=== PATIENT | female | born 1990 | race Caucasian/White ===

== ENCOUNTER 2016-06-22 10:37 | Emergency (ER) | payer BC, OTHER ==
[~2016-06-22] VITALS: Ht 149.9 cm; Wt 59.0 kg
[~2016-06-22 10:37] MED LIST: FERR1TAB25; PREN-95
[2016-06-22 13:17] LABS: BASOPHILS % 0.3 % (0.0-2.0); EOSINOPHILS % 0.4 % (0.0-5.0); HEMOGLOBIN. 11.5 g/dL (12.0-16.0); LYMPHOCYTES % 23.6 % (20.0-50.0); MEAN CORPUSCULAR HGB CONC 33.8 g/dL (31.0-37.0); MEAN PLATELET VOLUME 7.4 fl (7.4-10.4); MONOCYTES % 6.3 % (2.0-8.0); NEUTROPHILS % 69.4 % (40.0-76.0); PLATELET 223 x1000/uL (130-400); RED BLOOD CELL COUNT 3.95 mill/uL (4.2-5.4); RED CELL DISTRIBUTION WIDTH 14.8 % (11.6-14.6); WHITE BLOOD COUNT 7.2 x1000/uL (4.5-11.0)
[2016-06-22 13:25] LABS: PROTHROMBIN TIME 10.8 sec
[2016-06-22 13:32] LABS: ALANINE AMINOTRANSFERASE < 6 IU/L (13-61); ALBUMIN 3.7 g/dL (3.4-5.0); ANION GAP 13; CALCIUM 8.4 mg/dL (8.5-10.1); CARBON DIOXIDE 25 mEq/L (21-32); CHLORIDE 103 mEq/L (98-107); INDEX HEMOLYSI 1 (1-3); INDEX ICTERIC 1 (1-4); INDEX LIPEMIC 1 (1-3); UREA NITROGEN BLOOD 6 mg/dL (7-21); eGFR > 60 mL/min (>60)
[2016-06-22 13:47] LABS: B-HCG QUANTITATIVE 18598 mIU/mL (<3)
[2016-06-22 13:58] LABS: HCG SCREEN POSITIVE
[2016-06-22 14:39] LABS: CLARITY URINE CLOUDY (CLEAR); GLUCOSE URINE NEGATIVE (NEGATIVE); KETONES URINE TRACE (NEGATIVE); LEUKOCYTE ESTERASE URINE NEGATIVE (NEGATIVE); NITRITE URINE NEGATIVE (NEGATIVE); OCCULT BLOOD URINE 3+ (NEGATIVE); PH URINE 6.5 (4.5-8.0); PROTEIN URINE NEGATIVE (NEGATIVE); SPECIFIC GRAVITY URINE 1.005 (1.005-1.030); UROBILINOGEN URINE 0.2 E.U./dL (0.2-1.0)
[2016-06-22 14:52] LABS: SQUAMOUS EPITHELIAL CELL URINE 3+ /lpf (RARE/1+)
[2016-06-22 14:53] LABS: COLOR URINE BLOODY (YELLOW)
[2016-06-22 14:54] LABS: BACTERIA URINE 3+; RBC URINE 50-100 /hpf (0-2)
[2016-06-22 15:09] VITALS: BP 96/45
== END 2016-06-22 15:37 | disposition home or self-care (01) ==
LOC: ER 12:37
DX: O36.4XX0 Maternal care for intrauterine death, not applicable or unspecified (principal); Z3A.12 12 weeks gestation of pregnancy; Z79.899 Other long term (current) drug therapy; Z98.890 Other specified postprocedural states
CPT/HCPCS: 36415; 76801; 80053; 81001; 84702; 84703; 85025; 85610; 86850; 86900; 86901; 99285; Z7610

== ENCOUNTER 2016-06-25 19:32 | Emergency (ER) | payer BC | END 2016-06-25 20:33 | disposition left against medical advice (07) | LOC: ER 20:20 | DX: N93.9 Abnormal uterine and vaginal bleeding, unspecified (principal); Z53.21 Procedure and treatment not carried out due to patient leaving prior to being seen by health care provider ==

== ENCOUNTER 2016-06-26 04:49 | Emergency (ER) | payer BC ==
[~2016-06-26] VITALS: Ht 149.9 cm; Wt 52.0 kg
[2016-06-26 09:21] LABS: BASOPHILS % 0.4 % (0.0-2.0); EOSINOPHILS % 0.8 % (0.0-5.0); HEMATOCRIT. 32.2 % (36.0-48.0); LYMPHOCYTES % 30.8 % (20.0-50.0); MEAN CORPUSCULAR HEMOGLOBIN 29.5 pg (28.0-32.0); MEAN CORPUSCULAR HGB CONC 34.2 g/dL (31.0-37.0); MEAN CORPUSCULAR VOLUME 86.4 fL (81.0-99.0); MEAN PLATELET VOLUME 7.8 fl (7.4-10.4); MONOCYTES % 8.6 % (2.0-8.0); NEUTROPHILS % 59.4 % (40.0-76.0); PLATELET 218 x1000/uL (130-400); RED BLOOD CELL COUNT 3.72 mill/uL (4.2-5.4); RED CELL DISTRIBUTION WIDTH 14.8 % (11.6-14.6); WHITE BLOOD COUNT 6.6 x1000/uL (4.5-11.0)
[2016-06-26] MEDS ORDERED: MISOPROSTOL 200MCG TABLET PO ONE (11:30)
[2016-06-26 12:04] VITALS: BP 98/60
== END 2016-06-26 12:05 | disposition home or self-care (01) ==
LOC: ER 04:50
DX: O02.1 Missed abortion (principal)
CPT/HCPCS: 36415; 76801; 84702; 85025; 99285

== ENCOUNTER 2016-06-26 17:32 | Emergency (ER) | payer BC ==
[~2016-06-26] VITALS: Ht 160 cm; Wt 58.0 kg
[2016-06-26 20:20] LABS: CHLORIDE 105 mEq/L (98-107); INDEX HEMOLYSI 1 (1-3); INDEX ICTERIC 1 (1-4); INDEX LIPEMIC 1 (1-3)
[2016-06-26 20:23] LABS: BASOPHILS % 0.3 % (0.0-2.0); HEMATOCRIT. 34.5 % (36.0-48.0); HEMOGLOBIN. 11.6 g/dL (12.0-16.0); MEAN CORPUSCULAR HGB CONC 33.7 g/dL (31.0-37.0); MEAN CORPUSCULAR VOLUME 86.2 fL (81.0-99.0); MEAN PLATELET VOLUME 8.4 fl (7.4-10.4); MONOCYTES % 4.4 % (2.0-8.0); NEUTROPHILS % 87.3 % (40.0-76.0); PLATELET 235 x1000/uL (130-400); RED CELL DISTRIBUTION WIDTH 14.5 % (11.6-14.6); WHITE BLOOD COUNT 16.5 x1000/uL (4.5-11.0)
[2016-06-26 20:25] LABS: ANION GAP 14; CALCIUM 8.8 mg/dL (8.5-10.1); CARBON DIOXIDE 22 mEq/L (21-32); UREA NITROGEN BLOOD 7 mg/dL (7-21)
[2016-06-26 20:29] LABS: eGFR > 60 mL/min (>60)
[2016-06-26 20:30] VITALS: BP 106/60
[2016-06-26 20:42] LABS: B-HCG QUANTITATIVE 8417 mIU/mL (<3)
== END 2016-06-26 20:40 | disposition home or self-care (01) ==
LOC: ER 17:34
DX: O02.1 Missed abortion (principal)
CPT/HCPCS: 36415; 76801; 80048; 84702; 85025; 86850; 86900; 88305; 99285

== ENCOUNTER 2019-07-13 20:03 | Emergency (ER) | payer SELFPAY ==
[~2019-07-13] VITALS: Ht 149.9 cm; Wt 55.0 kg
[2019-07-13 20:26] VITALS: BP 120/53
== END 2019-07-13 23:00 | disposition home or self-care (01) ==
LOC: ER 20:03
DX: J06.9 Acute upper respiratory infection, unspecified (principal); R06.09 Other forms of dyspnea; Z98.890 Other specified postprocedural states
CPT/HCPCS: 71045; 81025; 99282

== ENCOUNTER 2022-06-20 22:58 | Emergency (ER) | payer OTHER ==
[~2022-06-20] VITALS: Ht 147.3 cm; Wt 54.0 kg
[2022-06-20 23:52] VITALS: BP 105/65
== END 2022-06-21 07:18 | disposition home or self-care (01) ==
LOC: ER 23:06
DX: R06.02 Shortness of breath (principal); R05.9 Cough, unspecified; Z98.890 Other specified postprocedural states
CPT/HCPCS: 71045; 81025; 93005; 99283